=== PATIENT | female | born 1940 | race Caucasian/White ===

== ENCOUNTER → 2022-04-05 | Outpatient (CLI) | payer MEDICARE | LOC: HEART 5 12-21 08:30 → ECHO 02-06 12:30 → HEART 5 02-06 13:30 | DX: R00.1 Bradycardia, unspecified (principal); I10 Essential (primary) hypertension; R01.1 Cardiac murmur, unspecified; I27.20 Pulmonary hypertension, unspecified; I08.3 Combined rheumatic disorders of mitral, aortic and tricuspid valves | CPT/HCPCS: 93306 ==